=== PATIENT | female | born 1995 | race Caucasian/White ===

== ENCOUNTER 2025-02-27 09:00 | Emergency (ER) | payer OTHER, SELFPAY ==
[2025-02-27 09:02] VITALS: BP 183/85
[2025-02-27 09:54] LABS: % Basophils 0.4 % (0-2); % Eosinophils 0.9 % (0-6); % Immature Granulocytes 0.4 % (0-0.5); % Lymphocytes 20.6 % (20.5-51.1); % Monocytes 5.8 % (1.7-9.3); % Neutrophils 71.9 % (42.2-75.2); Absolute Eosinophils 0.1 10^3/uL (0-0.7); Absolute Lymphocytes 2.1 10^3/uL (1.2-3.4); Absolute Monocytes 0.6 10^3/uL (0.1-0.6); Absolute Neutrophils 7.4 10^3/uL (1.4-6.5); Hematocrit 33.2 % (37.0-47.0); Hemoglobin 10.8 g/dL (12.0-16.0); Mean Corp Hgb Conc. 32.5 g/dL (33.0-37.0); Mean Platelet Volume 9.4 fL (7.4-10.4); Nucleated Red Blood Cells % 0 %; Platelet Count 218 10^3/uL (130-400); Red Blood Cell Count 4.15 10^6/uL (4.20-5.40); White Blood Cell Count 10.2 10^3/uL (4.8-10.8)
[2025-02-27 10:02] LABS: ALT (SGPT) 29 U/L (0-35); AST (SGOT) 27 U/L (14-36); Albumin 3.2 g/dl (3.5-5.0); Alkaline Phosphatase 65 U/L (38-126); Blood Urea Nitrogen 27 mg/dl (7-17); Calcium 8.6 mg/dl (8.4-10.2); Carbon Dioxide 24 mmol/L (22-30); Chloride 110 mmol/L (98-107); Glucose 112 mg/dl (70-99); Potassium 4.7 mmol/L (3.5-5.1); Sodium 140 mmol/L (135-145); Total Bilirubin 1.5 mg/dl (0.2-1.3); Total Protein 6.6 g/dl (6.3-8.2); eGFR > 60.00
[2025-02-27 10:07] LABS: HCG, Serum Qualitative Screen Negative
--- NOTE | 2025-02-27 10:22 | ED.GENMED ---
History of Present Illness
General
Chief Complaint: Breathing Problem
Time Seen by Provider: 02/27/25 09:54
History of Present Illness
History of Present Illness:
Patient is a 29-year-old woman presenting to the emergency department with shortness of breath. Patient states that 5 days ago she noticed some swelling to the right foot. She noticed that when she would elevate it while she is sleeping the
swelling will go away. 2 days ago developed shortness of breath especially upon exertion. She is having some orthopnea as well. She does state that she is intermittently having coughing as well as wheezing. She does have 2 told her kids at home
who have been recently sick as well. No history of malignancy blood clot hemoptysis travel. She states that the swelling is very minimal at this time. She does have a history of vaping but no history of asthma or known lung disease.
Phy Exam
Physical Exam
Physical Exam:
GENERAL: in no acute distress, morbidly obese
HEENT: normocephalic, extraocular movements intact, moist oral mucosa
NECK: normal inspection
RESPIRATORY: no respiratory distress, fine crackles mostly heard at the left lower base with diminished breath sounds and intermittent wheezing
CARDIOVASCULAR: regular rate and rhythm
ABDOMEN/: soft, non-distended, non-tender to palpation, no rebound or guarding
EXTREMITIES: non-tender, very mild edema at the right ankle, distal pulses intact, normal sensation
NEUROLOGIC: awake and alert, moves all extremities
SKIN: warm
Course
Orders/Labs/Results
Orders:
Orders
02/27/25 09:26
US Legs, Right [US Periph Venous LOWER Ext RT] Urgent
Comment:
Reason For Exam: swelling
02/27/25 09:27
Electrocardiogram (*1) Urgent
Reason for Study: Chest Pain
EKG- Treatment ONCE
Test Result ONCE
02/27/25 09:32
Complete Blood Count/With Diff Urgent
Comprehensive Metabolic Panel Urgent
HCG, Serum Qualitative Screen Urgent
Comment: Notify provider if positive test present
NT-proBNP Urgent
Comment: ADD ON
02/27/25 10:21
Add On- LAB Urgent
Tests Added?: bnp
Ipratropium/Albuterol Sulfate [Duoneb] 3 ml INH R NOW ONE
CR Chest - 2 Views Urgent
Comment:
Reason For Exam: sob
02/27/25 10:44
COVID-19 Antigen Urgent
Source: Nasal Swab
Influenza A+B Rapid Molecular Urgent
BHARATI Source: Nasal Swab
Specimen Description:
Abnormal Lab Results
02/27/25
09:32
RBC 4.15 L 10^6/uL
(4.20-5.40)
Hgb 10.8 L g/dL
(12.0-16.0)
Hct 33.2 L %
(37.0-47.0)
MCV 80.0 L fL
(81.0-99.0)
MCH 26.0 L pg
(27.0-31.0)
MCHC 32.5 L g/dL
(33.0-37.0)
Absolute Neuts (auto) 7.4 H 10^3/uL
(1.4-6.5)
Chloride 110 H mmol/L
(98-107)
BUN 27 H mg/dl
(7-17)
Glucose 112 H mg/dl
(70-99)
Total Bilirubin 1.5 H mg/dl
(0.2-1.3)
Albumin 3.2 L g/dl
(3.5-5.0)
02/27/25 09:32
02/27/25 09:32
Vital Signs
Initial and Last Documented VS:
Initial Vital Signs
Pulse Resp BP Pulse Ox
85 20 183/85 99
02/27/25 09:02 02/27/25 09:02 02/27/25 09:02 02/27/25 09:02
Last Documented Vital Signs
Pulse Resp BP Pulse Ox
75 16 136/75 100
02/27/25 12:38 02/27/25 12:38 02/27/25 12:38 02/27/25 12:38
MDM/Problems Addressed
Differential Diagnosis Includes:
Patient is a 29-year-old woman presenting to the emergency department with concern for right leg swelling and then shortness of breath the past few days. On arrival vitals unremarkable and exam does show crackles as well as wheezing/diminished
breath sounds other lung meyer and very mild ankle swelling to the right foot. Differential consists of DVT versus dependent edema versus BP induced lung injury versus pulmonary edema. Less likely to be PE as patient's vital signs are
unremarkable and patient does have lung exam findings that suggest either fluid versus vaping induced lung injury. DVT study obtained prior to my evaluation which is negative. Will add on BNP and viral swab. Will also obtain chest x-ray. Will
give nebulizer treatment and reassess
*Critical Care Note
Total Time (30-74mins, 75-104mins- exclusive of procedures): Not Applicable
Update Note
Update Note:
On reassessment patient does state the nebulizer treatment helped. BNP slightly elevated. Chest x-ray per my interpretation with no significant vascular congestion. Per the official read there is bibasal atelectasis versus possible left lower
lobe pneumonia.
I did discuss with patient and she is not having any infectious signs or symptoms so we will hold off on treating with antibiotics. Will discharge with pulmonary follow-up as well as albuterol inhaler as the nebulizer did not improve her symptoms.
Patient advised to stop vaping and to also start exercising as it may help some of her symptoms
ED Attending Note
-
Portions of this chart may have been created with voice recognition software.� Occasional wrong word or��sound alike� substitutions may have occurred due to the inherent limitations of voice recognition software.
Discharge Plan
Departure
Patient Disposition: Home (Routine Discharge)
Date of Disposition: 02/27/25
Time of Disposition: 12:50
Patient with high blood pressure during this ER visit?: No
Discharge Problem:
Shortness of breath
Instructions: Shortness of Breath (Dyspnea) (DC), Vaping
Prescriptions:
New
albuterol sulfate [Ventolin HFA] 90 mcg/actuation HFA aerosol inhaler
2 puff inhalation Q6H PRN (Reason: shortness of breath or wheezing) Qty: 6.7 0RF
Referrals:
Rk Aguirre MD [Active] -
Silvio Omer DO [Family Provider] -
Activity Restrictions/Additional Instructions:
You were seen in the Emergency Department today for shortness of breath. While you were here we performed blood work, which was reassuring. Please stop vaping. Please use albuterol inhaler as needed. Please follow-up with pulmonology.
We would like for you to follow up with your primary care physician for further evaluation. If you experience fever, worsening of your symptoms, or develop any other new or concerning symptoms, please return to the Emergency Department immediately.
Please see the attached sheet for additional information.
Interventions
Interventions:
*Risk Screen - Suicide Last Done: 02/27/25 09:02
*General Assessment Last Done: 02/27/25 09:02
*Neglect/Abuse Screening Last Done: 02/27/25 09:02
ED- Cardiac Assessment Last Done: 02/27/25 10:41
ED- Pulmonary Assessment Last Done: 02/27/25 10:41
Discharge Date and Time
Print Language: RUSSIAN
[2025-02-27 10:41] VITALS: BMI 48.6
[2025-02-27] MEDS: DUONEB 3 ML INH (10:46)
[2025-02-27 11:13] LABS: COVID-19 Antigen Negative (Negative)
[2025-02-27 12:21] LABS: NT-proBNP 834 pg/ml
[2025-02-27 12:38] VITALS: BP 136/75
== END 2025-02-27 13:25 | disposition home or self-care (01) ==
LOC: EMR 09:00
PROVIDERS: EMERGENCY PHYSICIAN Student in an Organized Health Care Education/Training Program; FAMILY PHYSICIAN Family Medicine
DX: R06.02 Shortness of breath (principal); R05.9 Cough, unspecified; R06.2 Wheezing; R60.0 Localized edema; Z11.52 Encounter for screening for COVID-19; F17.290 Nicotine dependence, other tobacco product, uncomplicated
CPT/HCPCS: 99284; 94640; 71046; 80053; 83880; 84703; 85025; 87502; 87811; 93005; 93971